=== PATIENT | male | born 1960 | race African-American/Black ===

== ENCOUNTER 2017-05-14 09:18 | Emergency (ER) | payer OTHER ==
[2017-05-14 09:25] VITALS: BP 132/91; PULSE 65; TEMP 98.7; BMI 35.2
--- NOTE | 2017-05-14 09:59 | PDOC ---
History of Present Illness - General Chief Complaint: Pain Stated Complaint: ALLERGIX RXN TO RX Time Seen by Provider: 05/14/17 09:30 History Source: Patient Exam Limitations: No Limitations - History of Present Illness Initial Comments: 05/14/17 09:52 Patient is a 56-year-old male history of hypertension and high cholesterol had 2 root canals on 05/08/2016 on clindamycin every 6 hours developed oral lesions to tongue and left side of buccal mucosa 2 days ago. Patient states it hurts when he eats. No fever. No difficulty swallowing. No difficulty breathing. No chest pain shortness of breath. Allergies: No known allergies Medications: See medication list Family History: Non-contributory Social History: Denies smoking, alcohol use, or IVDU Review of Systems GENERAL/CONSTITUTIONAL: No fever or chills. No weakness. No weight change. HEAD, EYES, EARS, NOSE AND THROAT: No change in vision. No ear pain or discharge. No sore throat. Oral lesions to tongue and left buccal mucosa CARDIOVASCULAR: No chest pain or shortness of breath. RESPIRATORY: No cough, wheezing, or hemoptysis. GASTROINTESTINAL: No nausea, vomiting, diarrhea or constipation. No rectal bleeding. GENITOURINARY: No dysuria, frequency, or change in urination. MUSCULOSKELETAL: No joint or muscle swelling or pain. No neck or back pain. SKIN : No rash or easy bruising. NEUROLOGIC: No headache, vertigo, loss of consciousness, or loss of sensation. PSYCHIATRIC: No depression or anxiety. ENDOCRINE: No increased thirst. No abnormal weight change. HEMATOLOGIC/LYMPHATIC: No anemia, easy bleeding, or history of blood clots. ALLERGIC/IMMUNOLOGIC: No hives or skin allergy. No latex allergy. Physical Exam: GENERAL: The patient is awake, alert, and fully oriented, in no acute distress. HEAD: Normal with no signs of trauma. Left cheek mild edema. EYES: Pupils equal, round and reactive to light, extraocular movements intact, sclera anicteric, conjunctiva clear. ENT: Ears normal, nares patent, oropharynx clear without exudates. Moist mucous membranes. No uvula deviation. Lesions to tongue, left buccal mucosa NECK: Normal range of motion, supple without lymphadenopathy, JVD, or masses. LUNGS: Breath sounds equal, clear to auscultation bilaterally. No wheezes, and no crackles. HEART: Regular rate and rhythm, normal S1 and S2 without murmur, rub or gallop. ABDOMEN: Soft, nontender, normoactive bowel sounds. No guarding, no rebound. No masses. No bruising or abrasions MUSCULOSKELETAL: Normal range of motion, no edema. No clubbing or cyanosis. No cords, erythema, or tenderness. No CVA Tenderness with fist. NEUROLOGICAL: Cranial nerves II through XII grossly intact. Normal speech, normal gait. SKIN: Warm, Dry, normal turgor, no rashes or lesions noted. Lesions to tongue and left side of her inner cheek Past History - Past Medical History Allergies/Adverse Reactions: Allergies Allergy/AdvReac Type Severity Reaction Status Date / Time No Known Allergies Allergy Verified 05/14/17 09:25 Home Medications: Ambulatory Orders Amlodipine Bes/Olmesartan Med [Peg 5-20 mg Tablet] 1 each PO DAILY 04/12/13 Clindamycin [Cleocin -] 150 mg PO Q6H 05/14/17 Mag Hydrox/Alh/Smc/Dpha/Lido [Magic Mouthwash *Sjr Formula* -] 15 ml MM Q6HPO # 180 ml 05/14/17 Valacyclovir HCl [Valtrex] 1,000 mg PO BID #14 tablet 05/14/17 HTN: Yes - Psycho/Social/Smoking Cessation Hx Anxiety: No Suicidal Ideation: No Smoking Status: No Smoking History: Never smoked Have you smoked in the past 12 months: No Number of Cigarettes Smoked Daily: 0 Hx Alcohol Use: No Drug/Substance Use Hx: No Substance Use Type: None *Physical Exam - Vital Signs Last Vital Signs Temp Pulse Resp BP Pulse Ox 98.7 F 65 20 132/91 97 05/14/17 09:22 05/14/17 09:22 05/14/17 09:22 05/14/17 09:22 05/14/17 09:22 Medical Decision Making - Medical Decision Making 05/14/17 09:54 A/P: Patient here for evaluation develop lesions to tongue and inside of left cheek after having double root canal on 05/08/2016 on clindamycin every 6 hours. Case discussed with Dr.Reddi Endohuber for patient. We will start patient on valacyclovir 1 g twice a day, also prescribed Magic mouthwash patient will follow-up tomorrow in office. If any increased facial edema, difficulty swallowing, chest pain shortness of breath, to return immediately to ER I discussed the physical exam findings, ancillary test results and final diagnoses with the patient. I answered all of the patient's questions. The patient was satisfied with the care received and felt comfortable with the discharge plan and treatment plan. The patient will follow-up and will return to the Emergency Department with any new, persistent or worsening symptoms. *DC/Admit/Observation/Transfer Diagnosis at time of Disposition: Oral mucosal lesion - Discharge Dispostion Disposition: HOME Condition at time of disposition: Good Admit: No - Prescriptions Prescriptions: Mag Hydrox/Alh/Smc/Dpha/Lido [Magic Mouthwash *Sjr Formula* -] 15 ml MM Q6HPO # 180 ml Valacyclovir HCl [Valtrex] 1,000 mg PO BID #14 tablet - Patient Instructions Additional Instructions: Please follow up tomorrow with your doctor. If any increased facial swelling, difficulty swallowing, or any other concerns return to ER Continue Motrin as needed for pain Medication as prescribed
== END 2017-05-14 10:18 | disposition home or self-care (01) ==
LOC: JERFT 09:18
DX: K13.79 Other lesions of oral mucosa (principal)
CPT/HCPCS: 99281-25

== ENCOUNTER 2017-07-22 16:20 | Emergency (ER) | payer OTHER ==
[2017-07-22 16:36] VITALS: BP 118/67; PULSE 82; TEMP 98.5; BMI 34.4
--- NOTE | 2017-07-22 17:31 | PDOC ---
History of Present Illness - General Chief Complaint: Sore Throat Stated Complaint: SORE THROAT Time Seen by Provider: 07/22/17 16:49 History Source: Patient Exam Limitations: No Limitations - History of Present Illness Initial Comments: 07/22/17 19:30 Patient is a 57-year-old male history of hypertension presents for evaluation of multiple oral painful lesions which started yesterday, patient denies any fever. Allergies: No known allergies Medications: See medication list. Family History: Non-contributory Social History: Denies smoking, alcohol use, or IVDU Review of Systems GENERAL/CONSTITUTIONAL: No fever or chills. No weakness. No weight change. HEAD, EYES, EARS, NOSE AND THROAT: No change in vision. No ear pain or discharge. Pain to uvula and right side of tongue CARDIOVASCULAR: No chest pain or shortness of breath. RESPIRATORY: No cough, wheezing, or hemoptysis. GASTROINTESTINAL: No nausea, vomiting, diarrhea or constipation. No rectal bleeding. GENITOURINARY: No dysuria, frequency, or change in urination. MUSCULOSKELETAL: No joint or muscle swelling or pain. No neck or back pain. SKIN AND BREASTS: No rash or easy bruising. NEUROLOGIC: No headache, vertigo, loss of consciousness, or loss of sensation. PSYCHIATRIC: No depression or anxiety. ENDOCRINE: No increased thirst. No abnormal weight change. HEMATOLOGIC/LYMPHATIC: No anemia, easy bleeding, or history of blood clots. ALLERGIC/IMMUNOLOGIC: No hives or skin allergy. No latex allergy. Physical Exam: GENERAL: The patient is awake, alert, and fully oriented, in no acute distress. EYES: Pupils equal, round and reactive to light, extraocular movements intact, sclera anicteric, conjunctiva clear. ENT: Ears normal, nares patent, oropharynx clear without exudates. Moist mucous membranes. No uvula deviation, canker noted to uvula, right side of tongue and right inside of the buccal mucosa NECK: Normal range of motion, supple without lymphadenopathy, JVD, or masses. LUNGS: Breath sounds equal, clear to auscultation bilaterally. No wheezes, and no crackles. HEART: Regular rate and rhythm, normal S1 and S2 without murmur, rub or gallop. ABDOMEN: Soft, nontender, normoactive bowel sounds. No guarding, no rebound. No masses. No bruising or abrasions MUSCULOSKELETAL: Normal range of motion, no edema. No clubbing or cyanosis. No cords, erythema, or tenderness. No CVA Tenderness with fist. NEUROLOGICAL: Cranial nerves II through XII grossly intact. Normal speech, normal gait. SKIN: Warm, Dry, normal turgor, no rashes or lesions noted. Past History - Past Medical History Allergies/Adverse Reactions: Allergies Allergy/AdvReac Type Severity Reaction Status Date / Time No Known Allergies Allergy Verified 07/22/17 16:33 Home Medications: Ambulatory Orders Amlodipine Bes/Olmesartan Med [Peg 10-40 mg Tablet] 1 each PO DAILY 07/22/17 Atorvastatin Ca [Lipitor] 20 mg PO HS 07/22/17 Triamcinolone Acetonide 1 applic TP BID #30 ml 07/22/17 HTN: Yes - Suicide/Smoking/Psychosocial Hx Smoking Status: No Smoking History: Never smoked Have you smoked in the past 12 months: No Number of Cigarettes Smoked Daily: 0 Information on smoking cessation initiated: No Hx Alcohol Use: No Drug/Substance Use Hx: No Substance Use Type: None *Physical Exam - Vital Signs Last Vital Signs Temp Pulse Resp BP Pulse Ox 98.5 F 82 18 118/67 98 07/22/17 16:33 07/22/17 16:33 07/22/17 16:33 07/22/17 16:33 07/22/17 16:33 Medical Decision Making - Medical Decision Making 07/22/17 19:36 A/P: Patient here for evaluation of stomatitis, will DC patient home on Triaminicalone in [place] with viscous lidocaine. This should reduce symptoms however may take motrin for the pain. Should follow up with the PMD for further evaluation. I discussed the physical exam findings, ancillary test results and final diagnoses with the patient. I answered all of the patient's questions. The patient was satisfied with the care received and felt comfortable with the discharge plan and treatment plan. The patient will call to arrange follow-up and will return to the Emergency Department with any new, persistent or worsening symptoms. *DC/Admit/Observation/Transfer Diagnosis at time of Disposition: Oral mucosal lesion, Stomatitis - Discharge Dispostion Disposition: HOME Condition at time of disposition: Good Admit: No - Prescriptions Prescriptions: Triamcinolone Acetonide 1 applic TP BID #30 ml - Referrals Referrals: Raphael June MD [Primary Care Provider] - - Patient Instructions Printed Discharge Instructions: Canker Sores (Alternative Therapy) Additional Instructions: Please follow-up with your primary care doctor or dental if wounds are not healed in 2 weeks Please apply ointment as prescribed twice a day - Post Discharge Activity
== END 2017-07-22 17:40 | disposition home or self-care (01) ==
LOC: JERFT 16:20
DX: K12.1 Other forms of stomatitis (principal)
CPT/HCPCS: 99281-25

== ENCOUNTER 2021-01-20 00:37 | Emergency (ER) | payer OTHER ==
[2021-01-20 01:24] VITALS: BP 129/69; PULSE 92; TEMP 98.8; BMI 36.9
[2021-01-20] MEDS ORDERED: LIDOCAINE 5% TOPICAL PATCH TP ONE (02:04)
[2021-01-20] MEDS ORDERED: KETOROLAC TROMETHAMINE 30 MG/1 ML VIAL IM ONE (02:05)
[2021-01-20] MEDS ORDERED: ACETAMINOPHEN 325 MG TABLET (FP) PO ONE (02:05)
[2021-01-20] MEDS ORDERED: ACETAMINOPHEN 325 MG TABLET (FP) ONE (02:14)
[2021-01-20] MEDS ORDERED: KETOROLAC TROMETHAMINE 30 MG/1 ML VIAL ONE (02:15)
[2021-01-20] MEDS ORDERED: LIDOCAINE 5% TOPICAL PATCH ONE (02:15)
[2021-01-20] MEDS ORDERED: DEXAMETHASONE SOD PHOSPHATE 10 MG/1 ML VIAL IM ONE (02:16)
[2021-01-20] MEDS ORDERED: DEXAMETHASONE SOD PHOSPHATE 10 MG/1 ML VIAL ONE (02:16)
[2021-01-20] MEDS ORDERED: LIDOCAINE PATCH REMOVAL MC SCH (22:00)
== END 2021-01-20 03:28 | disposition home or self-care (01) ==
LOC: JER 00:37
PROC: 3E0233Z Introduction of Anti-inflammatory into Muscle, Percutaneous Approach (ICD-10-PCS; principal; 2021-01-20)
PROC: 3E023NZ Introduction of Analgesics, Hypnotics, Sedatives into Muscle, Percutaneous Approach (ICD-10-PCS; 2021-01-20)
DX: M54.41 Lumbago with sciatica, right side (principal)
CPT/HCPCS: 99284-25; J1100

== ENCOUNTER 2022-07-06 23:53 | Emergency (ER) | payer OTHER ==
[2022-07-07 00:04] VITALS: BP 110/69; PULSE 82; RESP 20; TEMP 98.6; BMI 35.7
[2022-07-07] MEDS ORDERED: LORazepam 2 MG/ML SDV VIAL IVPUSH ONE (01:24)
[2022-07-07] MEDS ORDERED: ONDANSETRON 4 MG/2 ML VIAL IVPUSH ONE (01:40)
== END 2022-07-07 01:00 | disposition left against medical advice (07) ==
LOC: JER 23:53
DX: R07.9 Chest pain, unspecified (principal)
CPT/HCPCS: 93005; 93010; 99283-25

== ENCOUNTER 2023-01-29 11:16 | Emergency (ER) | payer OTHER ==
[2023-01-29 11:31] VITALS: BP 132/78; PULSE 67; RESP 16; TEMP 98.1; BMI 36.6
[2023-01-29] MEDS ORDERED: CYCLOBENZAPRINE HCL 10 MG TABLET (FP) PO ONE (12:32)
[2023-01-29] MEDS ORDERED: LIDOCAINE 5% TOPICAL PATCH TP ONE (12:32)
[2023-01-29] MEDS ORDERED: KETOROLAC TROMETHAMINE 30 MG/1 ML VIAL IM ONE (12:32)
[2023-01-29] MEDS ORDERED: ACETAMINOPHEN 500 MG TABLET (FP) PO ONE (12:32)
[2023-01-29] MEDS ORDERED: CYCLOBENZAPRINE HCL 10 MG TABLET (FP) ONE (12:44)
[2023-01-29] MEDS ORDERED: KETOROLAC TROMETHAMINE 30 MG/1 ML VIAL ONE (12:44)
[2023-01-29] MEDS ORDERED: LIDOCAINE 5% TOPICAL PATCH ONE (12:44)
[2023-01-29] MEDS ORDERED: ACETAMINOPHEN 500 MG TABLET (FP) ONE (12:44)
[2023-01-29] MEDS ORDERED: LIDOCAINE PATCH REMOVAL MC SCH (22:00)
== END 2023-01-29 13:34 | disposition home or self-care (01) ==
LOC: JERFT 11:16
PROC: 3E0233Z Introduction of Anti-inflammatory into Muscle, Percutaneous Approach (ICD-10-PCS; principal; 2023-01-29)
DX: M46.96 Unspecified inflammatory spondylopathy, lumbar region (principal)
CPT/HCPCS: 99284-25

== ENCOUNTER 2023-10-23 17:13 | Emergency (ER) | payer OTHER ==
[2023-10-23 17:39] VITALS: BMI 36.6
[2023-10-23] MEDS ORDERED: ACETAMINOPHEN 325 MG TABLET (FP) PO ONE (18:48)
[2023-10-23] MEDS ORDERED: ACETAMINOPHEN 325 MG TABLET (FP) ONE (19:05)
[2023-10-23 20:41] VITALS: BP 126/74; PULSE 83; RESP 16; TEMP 98.4
== END 2023-10-23 20:46 | disposition home or self-care (01) ==
LOC: JER 17:13
DX: R53.83 Other fatigue (principal); R05.9 Cough, unspecified; B34.9 Viral infection, unspecified; Z20.822 Contact with and (suspected) exposure to COVID-19
CPT/HCPCS: 0241U-QW; 99283-25